=== PATIENT | female | born 1955 | race Caucasian/White ===

== ENCOUNTER 2018-07-20 11:51 | Emergency (ER) | payer BC ==
[2018-07-20] MEDS ORDERED: Diphtheria,Pertussis(Acell),Tetanus Vaccine 0.5 ML SDV IM ONE (12:35)
--- NOTE | 2018-07-20 12:46 | EDM.PDOC ---
ED HPI GENERAL MEDICAL PROBLEM - General Chief Complaint: Upper Extremity Injury/Pain Stated Complaint: R ARM INJURY/DOG BITE Time Seen by Provider: 07/20/18 12:15 Source of Information: Reports: Patient History Limitations: Reports: No Limitations - History of Present Illness INITIAL COMMENTS - FREE TEXT/NARRATIVE: 63-year-old female presents for evaluation and treatment laceration to her right forearm. Injury occurred prior to arrival in the ER. Patient states that she was attempting to remove a "sticker" from her dog when her dog attempted to get away. Reports that she scratched on the right forearm. Dogs immunizations are up-to-date. She is unsure of her last tetanus. She is reporting tenderness to the area. Bleeding is controlled upon arrival to the ED. Onset: Today Location: Reports: Upper Extremity, Right Right Lower Arm Pain Score (Numeric/FACES): 6 - Related Data Allergies Allergy/AdvReac Type Severity Reaction Status Date / Time No Known Allergies Allergy Verified 07/20/18 12:08 Home Meds: Home Meds Amoxicillin/Potassium Clav [Augmentin 500-125 Tablet] 1 each PO BID #20 tablet 07/20/18 [Rx] Past Medical History - Past Surgical History Female Surgical History: Reports: Section Social & Family History - Tobacco Use Smoking Status *Q: Current Every Day Smoker Years of Tobacco use: 25 Packs/Tins Daily: 0.5 - Caffeine Use Caffeine Use: Reports: Coffee, Tea - Recreational Drug Use Recreational Drug Use: No Review of Systems - Review of Systems Review Of Systems: See Below Musculoskeletal: Reports: Arm Pain (right dorsal forearm ) Skin: Reports: Wound (superficial scratch to the right dorsal forearm ) ED EXAM, GENERAL - Physical Exam Exam: See Below Exam Limited By: No Limitations General Appearance: Alert, WD/WN, No Apparent Distress Respiratory/Chest: No Respiratory Distress Cardiovascular: Normal Peripheral Pulses Peripheral Pulses: 2+: Radial (L), Radial (R) Extremities: Normal Range of Motion, Normal Capillary Refill, Other (4.5 cm superficial laceration to th right dorsal forearm, area is tender to palpation) Neurological: Alert, Oriented Psychiatric: Normal Affect, Normal Mood Skin Exam: Warm, Dry, Normal Color ED TRAUMA EXTREMITY PROCEDURES - Laceration/Wound Repair Right Dorsal Arm Lac/Wound Length In cm: 4.5 Appearance: Superficial Distal NVT: Neuro & Vascular Intact, No Tendon Injury Closed With: Dermabond, Steri-Strips Sterile Dressing Applied: Nurse Tetanus Status Addressed: Yes Complications: No Course - Vital Signs Last Recorded V/S: Last Vital Signs Temp 98.4 F 07/20/18 12:11 Pulse 72 07/20/18 12:11 Resp 20 07/20/18 12:11 BP 166/91 H 07/20/18 12:11 Pulse Ox 99 07/20/18 12:11 - Orders/Labs/Meds Orders: Active Orders 24 hr Category Date Time Status Vaccines to be Administered [RC] PER UNIT ROUTINE Care 07/20/18 12:35 Active Meds: Medications Discontinued Medications Generic Name Dose Route Start Last Admin Trade Name Freq PRN Reason Stop Dose Admin Diphtheria/Tetanus/Acell Pertussis 0.5 ml 07/20/18 12:35 07/20/18 12:47 Adacel IM 07/20/18 12:36 0.5 ml .ONCE ONE Administration - Re-Assessments/Exams Free Text/Narrative Re-Assessment/Exam: 07/20/18 13:12 Area was closed with Dermabond and Steri-Strips. Patient tolerated well. Will put on Augmentin. Tetanus up dated. Discharge instructions as documented. Departure - Departure Time of Disposition: 13:12 Disposition: Home, Self-Care 01 Condition: Good Clinical Impression: Laceration, Dog scratch - Discharge Information *PRESCRIPTION DRUG MONITORING PROGRAM REVIEWED*: No *COPY OF PRESCRIPTION DRUG MONITORING REPORT IN PATIENT RICKY: No Prescriptions: Amoxicillin/Potassium Clav [Augmentin 500-125 Tablet] 1 each PO BID #20 tablet Instructions: Laceration Care, Adult, [id number] Referrals: PCP,None [Primary Care Provider] - Forms: ED Department Discharge Additional Instructions: Monitor for signs of infection such as increased on-call pus or redness. Present to clinic or the ER should these develop. [id number] Tylenol or Motrin seen for pain. wash the wound with gentle soap and water twice a day. Keep covered in situations where the wound may become dirty or contaminated otherwise opened to air as much as possible. Augmentin 1 tab twice a as prescribed. Take this for 10 days. Take this with food. Recommended a probiotic or yogurt as this medication is known to be more hard on your stomach. The glue and steri strips should follow-up on her own about 5-7 days. Allow them to fall off on their own. Please return to the ER if your symptoms change or worsen. Your tetanus was updated today. This is good for 10 years. - My Orders Last 24 Hours: My Active Orders 07/20/18 12:35 Vaccines to be Administered [RC] PER UNIT ROUTINE - Assessment/Plan Last 24 Hours: My Active Orders 07/20/18 12:35 Vaccines to be Administered [RC] PER UNIT ROUTINE
== END 2018-07-20 13:35 | disposition home or self-care (01) ==
LOC: JD.ED 11:51
DX: S41.111A Laceration without foreign body of right upper arm, initial encounter (principal); Z23 Encounter for immunization; F17.210 Nicotine dependence, cigarettes, uncomplicated; W54.8XXA Other contact with dog, initial encounter
CPT/HCPCS: 12002; 90471; 90715; 99283-25